=== PATIENT | female | born 2005 | race Hispanic/Latino ===

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

== ENCOUNTER → 2024-08-15 | Outpatient (CLI) | payer BC ==
--- NOTE | 2024-08-16 20:34 | HMCIMG ---
EXAM: CR Scoliosis series, 6 View. CLINICAL HISTORY: Evaluate scoliosis. COMPARISON: None provided. FINDINGS: BONES: No acute fracture or aggressive appearing osseous lesion. Mild lumbar levoscoliosis with the Pyle's angle measuring 15.8 degrees. Short-segment spinal asymmetry of the mid thoracic spine to the right, with Pyle's angle measuring 7.9 degrees. DISCS/DEGENERATIVE CHANGES: The disc spaces are preserved. SOFT TISSUES: The soft tissues are unremarkable. IMPRESSION: 1. Mild lumbar levoscoliosis with Pyle's angle of 15.8 degrees and right thoracic spinal asymmetry with Pyle's angle of 7.9 degrees. 2. No acute osseous injury. /Notrees
== END | disposition home or self-care (01) ==
LOC: RAH 10:51
PROVIDERS: ATTEND Internal Medicine
DX: M41.86 Other forms of scoliosis, lumbar region (principal); M54.16 Radiculopathy, lumbar region
CPT/HCPCS: 72082